=== PATIENT | male | born 1945 | race Caucasian/White ===

== ENCOUNTER 2016-05-27 18:02 | Emergency (ER) | payer OTHER ==
[2016-05-27] MEDS ORDERED: CYCLOBENZAPRINE 10 MG TAB ONE (18:58)
== END 2016-05-27 19:41 | disposition home or self-care (01) ==
LOC: ER 18:02
DX: S16.1XXA Strain of muscle, fascia and tendon at neck level, initial encounter (principal); V59.49XA Driver of pick-up truck or van injured in collision with other motor vehicles in traffic accident, initial encounter; Y92.410 Unspecified street and highway as the place of occurrence of the external cause; M47.892 Other spondylosis, cervical region; Z79.899 Other long term (current) drug therapy
CPT/HCPCS: 72050